=== PATIENT | male | born 1960 | race Caucasian/White ===

== ENCOUNTER 2021-05-28 05:40 | Day surgery (SDC) | payer OTHER, BC ==
[~2021-05-28] VITALS: Ht 182.9 cm; Wt 106.4 kg
--- NOTE | ~2021-05-28 | OR ---
[facility] [address], [place] [address] Draft DATE OF OPERATION: 05/28/2021 SURGEON: Rik Valdez MD PREOPERATIVE DIAGNOSES: 1. Deviated nasal septum. 2. Turbinate hypertrophy. 3. Nasal obstruction. 4. Obstructive sleep apnea. 5. Inability to use CPAP machine. POSTOPERATIVE DIAGNOSES: 1. Deviated nasal septum. 2. Turbinate hypertrophy. 3. Nasal obstruction. 4. Obstructive sleep apnea. 5. Inability to use CPAP machine. PROCEDURES: 1. Septoplasty, 41558. 2. Submucous resection of right inferior turbinate, 19547. INDICATIONS: This 60-year-old gentleman cannot use the CPAP machine well because of total nasal obstruction on the left side, poor nasal airway generally speaking, addicted to Afrin spray, which made it worse. We were able to wean him off that and then evaluating his airway, he had no airway on the left side from a total septal deviation from an old fracture of the nasal tip of the nose exteriorly also pointed to the right. Compensatory turbinate hypertrophy on the right also needed to be dealt with. Medical failure to treat his nasal obstruction was apparent. PROCEDURE IN DETAIL: The patient was placed in the supine position, had an orotracheal intubation, was placed under general anesthesia. During the procedure, total of 5 mL of 1% lidocaine with 1:200,000 epinephrine and 5 mL of 0.5% Marcaine with 1:200,000 epinephrine were utilized during the 1 hour procedure. The septum was injected on the left side trying to hydrodissect the mucosa, lifting it up. Incision was made at the junction with the septum with the floor on the left side with careful elevation and submucoperichondrial plane of dissection. The septum was comminuted from obvious old fracture and elevation was meticulous. Adhesions and very atrophic mucosa was evidenced in the procedure. PATIENT NAME: LILIANA ZUNIGA OPERATIVE REPORT DATE OF : 56 REPORT #: [id number] PHYSICIAN: RIK VALDEZ MD PCP: LUZ CRAIG PAC REPORT IS CONFIDENTIAL AND NOT TO BE RELEASED WITHOUT AUTHORIZATION [facility] [address], [place] [address] Draft bone from cartilage right where the osseocartilaginous junction was apparent with a José Luis D knife, then a septal button knife. Elevation of the contralateral mucoperiosteum was done with the caudal dissection tool and then isolating the deviation and fractured the bone, it was cut with Valencia scissors and removed those bony pieces with Andrea forceps. Inferiorly, the fractured maxillary crest was completely dissected and freed up from the rest of the dissection and a chisel was used to cut this maxillary crest plus a piece of an inferior strip of cartilage, so that we could straighten out the cartilage and make a generous airway on the left side. The flaps were then based it with 4-0 gut and the anterior incision closed with 4-0 chromic. Pushing the turbinates to the midline, the right side was not obstructed because of turbinate hypertrophy. After injecting with a little bit of the lidocaine, a stab incision was made with a 15 blade, making it no larger than that and then elevating the mucoperiosteal off the turbinate bone. The turbinate bone was fractured with Andrea forceps and pulled out with both the pediatric and the adult-sized Andrea forceps without tearing the mucosa. Deeper into the nose, the turbinate bone was fractured with the caudal dissection tool and a curette, making into small pieces and removed it from the airway. No packing required. The patient was awakened, sent to the recovery room in good condition. Rik Valdez MD [facility] [place] /[id number] Copies: ~ PATIENT NAME: LILIANA ZUNIGA OPERATIVE REPORT DATE OF : 56 REPORT #: [id number] PHYSICIAN: RIK VALDEZ MD PCP: LUZ CRAIG PAC REPORT IS CONFIDENTIAL AND NOT TO BE RELEASED WITHOUT AUTHORIZATION
[~2021-05-28 05:40] MED LIST: COZAAR100 MG PO; LANSOPRAZOLE30 MG PO
--- NOTE | 2021-05-28 09:09 | NUR ---
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 RESP EVEN AND UNLABORED. VSS. PT NONAROUSABLE.
--- NOTE | 2021-05-28 11:00 | NUR ---
0939 PT BACK TO ROOM FROM PACU ALERT AND AWAKE DENIES PAIN OR NAUSEA, HAD APPLE JUICE IN PACU DECLINES ANYTHING MORE TO EAT OR DRINK, IS AT BEDSIDE.
--- NOTE | 2021-05-28 11:02 | NUR ---
1040 PT UP TO BATHROOM ABLE TO AMBULATE WITH MIN ASSIST HE WAS ABLE TO VOID. PT WALKED BACK TO ROOM AND GOT BACK IN BED.
== END 2021-05-28 11:10 | disposition home or self-care (01) ==
LOC: DS 05:40 → OPS 05:40
PROVIDERS: ATTEND Otolaryngology
PROC: 09CM8ZZ Extirpation of Matter from Nasal Septum, Via Natural or Artificial Opening Endoscopic (ICD-10-PCS; principal; 2021-05-28 06:45)
DX: J34.2 Deviated nasal septum (principal); J34.3 Hypertrophy of nasal turbinates; J34.89 Other specified disorders of nose and nasal sinuses; G47.33 Obstructive sleep apnea (adult) (pediatric); Z20.822 Contact with and (suspected) exposure to COVID-19
CPT/HCPCS: 00160; J0330; J1100; J1885; J2250; J2370; J2405; J2704; J2765; J3010; J7121